=== PATIENT | male | born 1990 | race Two or more races ===

== ENCOUNTER 2022-01-23 09:57 | Outpatient (CLI) | payer OTHER | END 2022-01-23 15:51 | disposition home or self-care (01) | LOC: LAB 09:57 | DX: D64.9 Anemia, unspecified (principal); I10 Essential (primary) hypertension; E03.9 Hypothyroidism, unspecified; N39.0 Urinary tract infection, site not specified ==

== ENCOUNTER → 2022-02-25 | Outpatient (CLI) | payer OTHER | END | disposition home or self-care (01) | LOC: LAB 05:55 | DX: Z20.828 Contact with and (suspected) exposure to other viral communicable diseases (principal) ==